=== PATIENT | female | born 1990 | race Caucasian/White ===

== ENCOUNTER 2018-08-15 17:28 | Emergency (ER) | payer OTHER, MEDICAID, SELFPAY ==
[2018-08-15 17:36] VITALS: BP 135/95; PULSE 91; RESP 16; O2SAT 100; BMI 18.8
[2018-08-15 18:26] VITALS: BP 118/77; PULSE 69; RESP 14; O2SAT 100
--- NOTE | 2018-08-15 18:55 | DI.RAD.S_ITS ---
PROCEDURE: XR CHEST 1V INDICATIONS: Chest pain, shortness of breath occasionally, pna last month, cough gone TECHNIQUE: One view of the chest was acquired. COMPARISON: None. FINDINGS: Surgical changes and devices: None. Lungs and pleura: No pleural effusions or pneumothorax. Lungs are clear. Mediastinum: Mediastinal contours appear normal. Heart size is normal. Bones and chest wall: No suspicious bony lesions. Overlying soft tissues appear unremarkable. IMPRESSION: No acute disease. Dictated by: Rashaad Mcelroy M.D. on 08/15/2018 at 19:51 Approved by: Rashaad Mcelroy M.D. on 08/15/2018 at 19:51
--- NOTE | 2018-08-15 19:01 | ED_ITS ---
HPI - Chest Pain General Chief Complaint: Chest Pain Stated Complaint: STATES CHEST PAIN Time Seen by Provider: 08/15/18 18:35 Source: patient Mode of arrival: ambulatory Limitations: no limitations History of Present Illness HPI narrative: This is a 28-year-old female that comes to the emergency department with multiple concerns. Patient states she had pneumonia last month she was on antibiotics but did not follow up. Her cough resolved but she has had some chest pains that did not seem right the last 2 or 3 days. One episode was 3 days ago 1 was today. She feels fatigued and a little bit tired. The pain is sort of a of bolt in her chest but also in her back. She states that when she was trying to go up a she felt sort of strain with the exertion but does not feel short of breath necessary early. She has not had any fevers. She is not having any cough. She sometimes feels like she can't take a full breath but then other times can. She denies any nausea or vomiting, she denies any issues with bowel movements. She had urinary frequency yesterday. She has not had any prior back issues. She states that she is lying on the couch watching TV and does not bother her. She states she is normally very active person. She also has a history of anxiety and occasionally takes hydroxyzine for this, she also has had ADD. She was told that she had ovarian cyst remotely but never had her three-month follow-up ultrasound because of insurance issues. She does gape, she quit drinking alcohol a year ago because she states she was abusing alcohol, she also quit using THC about 3 months ago for the same reasons. She denies any other illicit. Patient states she did have lab work last week they told her that her thyroid is elevated, her vitamin K was off and told her to talk supplements, they also told her vitamin-D level was low. They want her to return in about a week for re-evaluation. Related Data Allergies Allergy/AdvReac Type Severity Reaction Status Date / Time No Known Drug Allergies Allergy Verified 08/15/18 17:36 Review of Systems Review of Systems All systems reviewed & are unremarkable except as noted in HPI and below Constitutional Denies chills, Reports fatigue, Denies fever(s) and Denies weakness Cardiovascular Reports chest pain, Denies chest pain at rest, Denies diaphoresis, Denies syncope, Denies edema, Denies irregular heart rhythm, Denies lightheadedness and Reports dyspnea (Sometimes, more tight in chest) Respiratory Denies chest congestion, Denies cough, Denies pain on inspiration, Denies pain with cough and Reports dyspnea (Sometimes, more tight in chest) Gastrointestinal Gastrointestinal: Denies abdominal pain, Denies change in bowel habits, Denies diarrhea, Denies nausea and Denies vomiting Genitourinary Denies hematuria, Reports urinary frequency, Denies flank pain, Denies urinary incontinence and Denies urinary urgency Musculoskeletal Reports back pain (Thoracic back pain, fleeting) and Denies limited range of motion Neurologic Denies syncope and Denies weakness Endocrine Reports fatigue [facility] Social History Smoking Status: Current every day smoker Exam Initial Vital Signs Initial Vital Signs: Vital Signs Pulse Rate 91 H 08/15/18 17:36 Respiratory Rate 16 08/15/18 17:36 Blood Pressure 135/95 H 08/15/18 17:36 Pulse Oximetry 100 08/15/18 17:36 GENERAL: Alert and oriented x three, well-nourished, well-appearing thin female in mild distress. Patient does appear anxious. HEENT: Head normocephalic, atraumatic, EOMI, pupils reactive, face symmetric, moist mucous membranes NECK: Supple, full range of motion CARDIOVASCULAR: Regular rate and rhythm without murmurs, rubs or gallops. RESPIRATORY: Breath sounds equal bilaterally, no wheezes rales or rhonchi. ABDOMEN: Soft, nontender. Normoactive bowel sounds all 4 quadrants. No guarding or rebound, rigidity, no mass : No CVA tenderness EXTREMITIES: Normal range of motion, no clubbing or edema. Neurovascularly intact NEUROLOGICAL: Cranial nerves II through XII grossly intact. Moving all extremities SKIN: Warm, dry, no petechiae, no rashes or lesions. Course Orders Ordered: ED Orders 08/15/18 18:55 XR chest 1V Stat 08/15/18 19:10 Complete Blood Count AUTO DIFF Stat Comprehensive Metabolic Panel Stat D Dimer Stat Lipase Stat Thyroid Stimulating Hormone Stat Troponin & CK Cardiac Panel Stat Vital Signs - 8 hr 08/15/18 17:36 08/15/18 18:26 08/15/18 19:14 Pulse Rate 91 H 69 65 Respiratory Rate 16 14 10 L Blood Pressure 135/95 H Blood Pressure [Right Arm] 118/77 109/66 Pulse Oximetry 100 100 100 08/15/18 20:08 Pulse Rate 67 Respiratory Rate 16 Blood Pressure Blood Pressure [Right Arm] 121/65 Pulse Oximetry 100 MDM - Chest Pain Lab Data Result diagrams: 08/15/18 19:10 08/15/18 19:10 Lab Results 08/15/18 08/15/18 08/15/18 Range/Units 19:10 19:10 19:10 WBC 8.3 (4.5-11.0) X10^3/uL RBC 4.63 (4.0-5.2) X10^6/uL Hgb 14.2 (12.0-16.0) g/dL Hct 42.9 (36-46) % MCV 92.7 (80-100) fL MCH 30.6 (26-34) PG MCHC 33.0 (30-36) % RDW 12.8 (11.6-14.8) % Plt Count 237 (150-400) X10^3/uL Neut % (Auto) 61.0 (50-75) % Lymph % (Auto) 28.9 (25-40) % [place] % (Auto) 6.9 (3-14) % Eos % (Auto) 2.4 (2-4) % Baso % (Auto) 0.8 (0-2) % Neut # (Auto) 5000 (8596-5720) /uL D-Dimer < 200 (<230) ng/mL Sodium 143 (137-145) mmol/L Potassium 3.7 (3.4-5.1) mmol/L Chloride 104 (98-107) mmol/L Carbon Dioxide 26 (22-32) mmol/L BUN 17 (7-17) mg/dL Creatinine 0.80 (0.52-1.04) mg/dL Estimated GFR > 60.0 (>60) mL/min BUN/Creatinine Ratio 21.3 (6-22) Glucose 85 (70-100) mg/dL Calcium 9.6 (8.4-10.2) mg/dL Total Bilirubin 0.3 (0.2-1.3) mg/dL AST 19 (14-36) IU/L ALT 20 (9-52) IU/L Alkaline Phosphatase 45 (38-126) U/L Total Creatine Kinase 57 (30-135) U/L CK-MB (CK-2) TNP CK-MB (CK-2) Rel Index TNP Troponin I < 0.012 (0.01-0.034) ng/mL Total Protein 7.4 (6.3-8.2) g/dL Albumin 4.5 (3.5-5.0) g/dL Globulin 2.9 (1.7-4.1) g/dL Albumin/Globulin Ratio 1.6 (1.0-2.8) Lipase 142 (23-300) U/L TSH (0.47-4.68) uIU/mL Urine RBC (0-5/HPF) Urine WBC (0-5/HPF) Ur Squamous Epith Cells Amorphous Sediment Urine Bacteria (None) Urine Mucus (Negative) Ur Culture Indicated? Micro UA Comment 08/15/18 08/15/18 Range/Units 19:10 Unknown WBC (4.5-11.0) X10^3/uL RBC (4.0-5.2) X10^6/uL Hgb (12.0-16.0) g/dL Hct (36-46) % MCV (80-100) fL MCH (26-34) PG MCHC (30-36) % RDW (11.6-14.8) % Plt Count (150-400) X10^3/uL Neut % (Auto) (50-75) % Lymph % (Auto) (25-40) % [place] % (Auto) (3-14) % Eos % (Auto) (2-4) % Baso % (Auto) (0-2) % Neut # (Auto) (4079-2985) /uL D-Dimer (<230) ng/mL Sodium (137-145) mmol/L Potassium (3.4-5.1) mmol/L Chloride (98-107) mmol/L Carbon Dioxide (22-32) mmol/L BUN (7-17) mg/dL Creatinine (0.52-1.04) mg/dL Estimated GFR (>60) mL/min BUN/Creatinine Ratio (6-22) Glucose (70-100) mg/dL Calcium (8.4-10.2) mg/dL Total Bilirubin (0.2-1.3) mg/dL AST (14-36) IU/L ALT (9-52) IU/L Alkaline Phosphatase (38-126) U/L Total Creatine Kinase (30-135) U/L CK-MB (CK-2) CK-MB (CK-2) Rel Index Troponin I (0.01-0.034) ng/mL Total Protein (6.3-8.2) g/dL Albumin (3.5-5.0) g/dL Globulin (1.7-4.1) g/dL Albumin/Globulin Ratio (1.0-2.8) Lipase (23-300) U/L TSH 1.49 (0.47-4.68) uIU/mL Urine RBC 0-1/hpf (0-5/HPF) Urine WBC 5-10/hpf H (0-5/HPF) Ur Squamous Epith Cells 1-5 /hpf Amorphous Sediment 1+ Urine Bacteria Many (>30) H (None) Urine Mucus 3+ H (Negative) Ur Culture Indicated? Specimen cultured Micro UA Comment Not Reportable Point of Care Testing Test Results Negative Urine Dip Bedside Urine Glucose Negative Bedside Urine Bilirubin - Negative Bedside Urine Ketone +/- 5 Urine Specific [place] 1.030 Bedside Urine Occult Blood - Negative Bedside Urine pH 6.0 Bedside Urine Protein +/- 15 Bedside Urine Urobilinogen - Negative Bedside Urine Nitrite - Negative Bedside Urine Leukocytes - Negative Esterase Imaging Data Chest x-ray: Radiologist's impression: [place] [address] XRay Report Signed Patient: Pily Maldonado [facility]#: [id number] : 1990Acct:[id number] Age/Sex: 28 / FDate of Service: 08/15/18 Loc: ED Accession Number: [id number] Procedure: XR chest 1V Ordering Provider: Che Pabon D.O. PROCEDURE: XR CHEST 1V INDICATIONS: Chest pain, shortness of breath occasionally, pna last month, cough gone TECHNIQUE: One view of the chest was acquired. COMPARISON: None. FINDINGS: Surgical changes and devices: None. Lungs and pleura: No pleural effusions or pneumothorax. Lungs are clear. Mediastinum: Mediastinal contours appear normal. Heart size is normal. Bones and chest wall: No suspicious bony lesions. Overlying soft tissues appear unremarkable. IMPRESSION: No acute disease. Dictated by: Rashaad Mcelroy M.D. on 08/15/2018 at 19:51 Approved by: Rashaad Mcelroy M.D. on 08/15/2018 at 19:51 ECG Data Attestation: I personally reviewed and interpreted this ECG as follows: Interpretation: Sinus rhythm rate of 68 P are 155 QRS is 78 and QTC of 373. No ST elevation or depression. MDM Narrative Medical decision making narrative: Patient lab work appears appropriate here today. Discussed that patient should keep follow up with primary care physician next week. She states she was told your vitamin-D level was low which I did not check, that her thyroid is elevated and her potassium was also low at to supplement. She has had 1 dose of potassium her level is fine here in the emergency department in her thyroid level is not out of normal bounds. Plan to have patient follow up with her primary care but not finding any acute or dangerous causes of her chest and back pain. Discharge Plan Departure Patient Disposition: Home Clinical Impression: Atypical chest pain Discharge Date/Time: 08/15/18 20:45 Interventions: ED Discharge Assessment Last Done: 08/15/18 20:44 Instructions: DI for Atypical Chest Pain Activity Restrictions/Additional Instructions: Follow-up at your scheduled appointment with your primary care provider. Included are your labs from today. Continue home medications as prescribed. Return to the emergency department for syncope, recurrent severe chest pain, worsening shortness of breath, new swelling in your extremities, persistent vomiting, black or bloody stools or other new or concerning symptoms.
[2018-08-15 19:14] VITALS: BP 109/66; PULSE 65; RESP 10; O2SAT 100
[2018-08-15 19:30] LABS: Add Manual Diff / Slide Review NO; Basophils Percent Auto 0.8 % (0-2); Eosinophils Percent Auto 2.4 % (2-4); Hematocrit 42.9 % (36-46); Hemoglobin 14.2 g/dL (12.0-16.0); Lymphocytes Percent Auto 28.9 % (25-40); Mean Corpuscular Hemoglobin 30.6 PG (26-34); Mean Corpuscular Volume 92.7 fL (80-100); Monocytes Percent Auto 6.9 % (3-14); Neutrophils Absolute Auto 5000 /uL (3000-5900); Platelet Count 237 X10^3/uL (150-400); Red Blood Cell Count 4.63 X10^6/uL (4.0-5.2); Red Cell Distribution Width 12.8 % (11.6-14.8); White Blood Cell Count 8.3 X10^3/uL (4.5-11.0)
[2018-08-15 19:41] LABS: D Dimer < 200 ng/mL (<230)
[2018-08-15 19:42] LABS: Alanine Aminotransferase 20 IU/L (9-52); Albumin 4.5 g/dL (3.5-5.0); Albumin Globulin Ratio 1.6 (1.0-2.8); Alkaline Phosphatase 45 U/L (38-126); Aspartate Aminotransferase 19 IU/L (14-36); BUN Creatinine Ratio 21.3 (6-22); Bilirubin Total 0.3 mg/dL (0.2-1.3); Blood Urea Nitrogen 17 mg/dL (7-17); Calcium 9.6 mg/dL (8.4-10.2); Carbon Dioxide 26 mmol/L (22-32); Chloride 104 mmol/L (98-107); Creatine Kinase 57 U/L (30-135); Estimated Glomerular Filt Rate > 60.0 mL/min (>60); Globulin 2.9 g/dL (1.7-4.1); Glucose 85 mg/dL (70-100); HEMOLYSIS < 15 (0-50); Lipase 142 U/L (23-300); Potassium 3.7 mmol/L (3.4-5.1); Sodium 143 mmol/L (137-145); Total Protein 7.4 g/dL (6.3-8.2)
[2018-08-15 19:54] LABS: Troponin I < 0.012 ng/mL (0.01-0.034)
[2018-08-15 20:08] VITALS: BP 121/65; PULSE 67; RESP 16; O2SAT 100
[2018-08-15 20:17] LABS: Thyroid Stimulating Hormone 1.49 uIU/mL (0.47-4.68)
[2018-08-15 20:46] LABS: Amorphous Sediment Urine 1+; Bacteria Urine Many (>30); Mucus Urine 3+ (Negative); RBC Urine 0-1/HPF (0-5/HPF); Squamous Epithelial Cell Urine 1-5 /HPF; WBC Urine 5-10/HPF (0-5/HPF)
[2018-08-15 20:47] LABS: Culture Indicated Urine Specimen Cultured
== END 2018-08-15 20:45 | disposition home or self-care (01) ==
PROVIDERS: Emergency Provider Emergency Medicine
DX: R07.89 Other chest pain (principal)
CPT/HCPCS: 36591; 71045; 80053; 81003; 81015; 81025; 82550; 83690; 84443; 84484; 85025; 85379; 87086; 93005; 99283; 99285

== ENCOUNTER 2020-06-10 21:42 | Emergency (ER) | payer OTHER, MEDICAID, SELFPAY ==
--- NOTE | 2020-06-10 21:45 | ED.ABDPAIN ---
HPI - Abdominal Pain General Chief Complaint: Nausea/Vomiting/Diarrhea Stated Complaint: not feeling well/no apetite/think she has worms Time Seen by Provider: 06/10/20 21:45 Source: patient Mode of arrival: Ambulatory History of Present Illness HPI narrative: 30F smoker without significant medical history presents with the chief complaint of poor appetite for the past 3 days, suprapubic cramping, and constipation. She had a small bowel movement today and saw a worm in it. She has spent a significant amount of time out on the boat and has been eating a lot of fish. She denies SHAY, fever, blurry vision, chest pain, or cough. She is on her menses and states it is relatively normal for her. She denies eating obviously bad food. She denies exposure to ill persons. MD complaint: abdominal pain Onset (ago): day(s) Pain Consistency: intermittent Location: suprapubic Severity: moderate Quality: cramping Radiation: none Exacerbating factors: nothing Related Data Previous Rx's Medication Instructions Recorded albendazole 400 mg PO DAILY #2 tab 06/10/20 ciprofloxacin HCl 500 mg PO BID 5 Days #10 tab 06/10/20 Allergies Allergy/AdvReac Type Severity Reaction Status Date / Time amoxicillin Allergy Verified 06/10/20 21:58 Review of Systems Constitutional Constitutional: Denies chills, Denies fatigue, Denies fever(s), Denies frequent falls, Denies lethargy and Denies weakness Eyes Eyes: Denies change in vision, Denies eye discharge, Denies irritation and Denies loss of vision ENT Ears, Nose, Mouth, and Throat: Denies change in voice, Denies dizziness, Denies neck pain, Denies sore throat and Denies throat swelling Cardiovascular Cardiovascular: Denies chest pain, Denies irregular heart rhythm, Denies lightheadedness, Denies palpitations, Denies dyspnea, Denies dyspnea on exertion and Denies orthopnea Respiratory Respiratory: Denies cough, Denies dyspnea, Denies dyspnea on exertion and Denies wheezing Gastrointestinal Gastrointestinal: Reports abdominal pain, Denies change in bowel habits, Reports change in stool character, Reports constipation, Denies diarrhea, Denies nausea and Denies vomiting Musculoskeletal Musculoskeletal: Denies neck pain and Denies numbness Integumentary/Breasts Skin/Breast: Denies pruritus, Denies erythema, Denies rash and Denies wounds Neurologic Neurologic: Denies behavioral changes, Denies confusion, Denies dizziness, Denies frequent falls, Denies loss of vision, Denies numbness and Denies weakness Psychiatric Psychiatric: Denies anxiety, Denies behavioral changes, Denies confusion, Denies depression, Denies homicidal ideation and Denies suicidal ideation Endocrine Endocrine: Denies fatigue, Denies flushing and Denies palpitations Hematologic/Lymphatic Hematologic/Lymphatic: Denies easy bruising Allergic/Immunologic Allergic/Immunologic: Denies urticaria, Denies throat swelling and Denies wheezing Patient History Social History Smoking Status: Current every day smoker Smoking Status: Current every day smoker Substance Use Type: does not use Exam Narrative Exam Narrative: GENERAL: [30] year old patient appears stated age. Thin. No obvious distress, drinking Red Bull. HEAD: Atraumatic. Normocephalic. EYES: Pupils equal round and reactive. Extraocular motions intact. No scleral icterus. No injection or drainage. ENT: Nose without bleeding, purulent drainage. Throat without erythema, tonsillar hypertrophy or exudate. Airway patent. NECK: Trachea midline. Non tender CARDIOVASCULAR: Regular rate and rhythm without murmurs, gallops, or rubs. RESPIRATORY: Clear to auscultation. Breath sounds equal bilaterally. No wheezes, rales, or rhonchi. GASTROINTESTINAL: Abdomen soft, non-tender, nondistended. EXTREMITIES: No edema or joint tenderness. BACK: Nontender without deformity or crepitance. No flank tenderness. NEURO: AOx3. SKIN: No rash or erythema of visible areas Initial Vital Signs Initial Vital Signs: Vital Signs Temperature 97.8 F 06/10/20 21:54 Pulse Rate 73 06/10/20 21:54 Respiratory Rate 18 06/10/20 21:54 Blood Pressure 137/80 06/10/20 21:54 Pulse Oximetry 99 06/10/20 21:54 Course Course Course Narrative: patient has reasurring exam and vitals. We discussed IVF, labs, possible imaging, but she refused stating she'd prefer to start more simple, and she has an appointment with her PCP on 06/13/2020. She's been given return precautions and has had questions answered to her apparent satisfaction Orders Ordered: ED Orders 06/10/20 22:00 Urinalysis and Microscopic Stat Vital Signs Vital signs: Vital Signs - 8 hr 06/10/20 21:54 Temperature 97.8 F Pulse Rate 73 Respiratory Rate 18 Blood Pressure 137/80 Pulse Oximetry 99 MDM - Abdominal Pain Lab Data Labs: Lab Results 06/10/20 Range/Units 22:00 Urine Color Yellow Urine Appearance Clear Urine pH 7.5 (4.5-8.0) Ur Specific [place] 1.015 (1.000-1.035) Urine Protein Negative (Negative) Urine Glucose (UA) Negative (Negative) g/dL Urine Ketones Negative (NEGATIVE) Urine Occult Blood Negative (Negative) Urine Nitrate Negative (Negative) Urine Bilirubin Negative (NEGATIVE) Urine Urobilinogen 0.2 (0.2) E.U./dL Ur Leukocyte Esterase Negative (NEGATIVE) Urine RBC None seen (0-5/HPF) Urine WBC None seen (0-5/HPF) Ur Squamous Epith Cells 0-1 /hpf (0-5/HPF) Urine Bacteria None seen (None) Ur Culture Indicated? Cult not indicated Micro UA Comment Microscopic normal Point of care testing: Point of Care Testing Test Results Negative Urine Dip Bedside Urine Glucose Negative Bedside Urine Bilirubin - Negative Bedside Urine Ketone - Negative Urine Specific [place] 1.010 Bedside Urine Occult Blood - Negative Bedside Urine pH 7.5 Bedside Urine Protein - Negative Bedside Urine Urobilinogen - Negative Bedside Urine Nitrite - Negative Bedside Urine Leukocytes +/- 15 Esterase Discharge Plan Departure Patient Disposition: Home Clinical Impression: Dysuria Discharge Date/Time: 06/10/20 22:51 Instructions: DI for Abdominal Pain-Adult, DI for Dysuria -- Adult Activity Restrictions/Additional Instructions: *You have been diagnosed with [ dysuria, abdominal cramping, possible worm in stool ] *What to do: *Take medications as directed *Follow up with your primary care provider in 2-3 days, call for an appointment. Let them know you were seen in the Emergency Department and that we ask that you be seen in follow up *Return to ER if you should have any new, worsening or concerning symptoms Prescriptions: New albendazole 200 mg tablet 400 mg PO DAILY Qty: 2 RF: 0 ciprofloxacin HCl 500 mg tablet 500 mg PO BID 5 Days Qty: 10 RF: 0 Referrals: Sergio García MD [Primary Care Provider] -
[2020-06-10 21:54] VITALS: BP 137/80; PULSE 73; RESP 18; TEMP 36.6; O2SAT 99; BMI 20.5
[2020-06-10 22:21] LABS: Bacteria Urine None Seen; RBC Urine None Seen (0-5/HPF); WBC Urine None Seen (0-5/HPF)
[2020-06-10 22:22] LABS: Appearance Urine UA CLEAR; Bilirubin Urine UA NEGATIVE (NEGATIVE); Color Urine UA YELLOW; Glucose Urine UA NEGATIVE (Negative); Ketones Urine UA NEGATIVE (NEGATIVE); Leukocyte Esterase Urine UA NEGATIVE (NEGATIVE); Nitrite Urine UA NEGATIVE (Negative); Occult Blood Urine UA NEGATIVE (Negative); Protein Urine UA NEGATIVE (Negative); Specific Gravity Urine UA 1.015 (1.000-1.035); Urobilinogen Urine UA 0.2 E.U./dL (0.2)
[2020-06-10 22:24] LABS: Culture Indicated Urine Cult Not Indicated; Squamous Epithelial Cell Urine 0-1 /HPF (0-5/HPF); Urine Comments Microscopic Normal; pH Urine UA 7.5 (4.5-8.0)
== END 2020-06-10 22:51 | disposition home or self-care (01) ==
PROVIDERS: Emergency Provider Emergency Medicine; PCP Family Medicine
DX: R10.30 Lower abdominal pain, unspecified (principal); R30.0 Dysuria
CPT/HCPCS: 81001; 81003; 81025; 99282

== ENCOUNTER 2020-06-21 22:59 | Emergency (ER) | payer OTHER, MEDICAID, SELFPAY ==
[2020-06-21 23:14] VITALS: BP 147/81; PULSE 111; RESP 18; TEMP 36.6; O2SAT 100; BMI 20.5
[2020-06-21 23:49] VITALS: PULSE 112; O2SAT 100
[2020-06-22] VITALS (11 sets, daily range): BP systolic 127–157; BP diastolic 67–74; PULSE 69–106; O2SAT 98–100
[2020-06-22 01:21] LABS: Appearance Urine UA CLEAR; Bilirubin Urine UA NEGATIVE (NEGATIVE); Color Urine UA YELLOW; Glucose Urine UA NEGATIVE (Negative); Ketones Urine UA TRACE (NEGATIVE); Leukocyte Esterase Urine UA NEGATIVE (NEGATIVE); Nitrite Urine UA NEGATIVE (Negative); Occult Blood Urine UA 3+ (Negative); Protein Urine UA 1+ (Negative); Specific Gravity Urine UA 1.015 (1.000-1.035); Urobilinogen Urine UA 0.2 E.U./dL (0.2)
[2020-06-22 01:22] LABS: pH Urine UA 8.5 (4.5-8.0)
[2020-06-22 01:26] LABS: UR Morphine/Opiate cutoff 300 Negative (Negative); Ur Creatinine Normal (Normal); Ur Specific Gravity Normal (Normal); Urine Amphetamines Positive (Negative); Urine Barbiturates Negative (Negative); Urine Benzodiazepines Negative (Negative); Urine Cocaine Negative (Negative); Urine MDMA Negative (Negative); Urine Methadone Negative (Negative); Urine Methamphetamines Negative (Negative); Urine Oxycodone Negative (Negative); Urine Phencyclidine Negative (Negative); Urine Tetrahydrocannabinol Positive (Negative); Urine Tricyclic Antidepressant Positive (Negative); Urine pH Normal (Normal)
[2020-06-22 01:29] LABS: Bacteria Urine Moderate (10-30); RBC Urine 1-5/HPF (0-5/HPF); Squamous Epithelial Cell Urine 1-5 /HPF (0-5/HPF); WBC Urine 0-1/HPF (0-5/HPF)
[2020-06-22 01:30] LABS: Add Manual Diff / Slide Review NO; Basophils Absolute Auto 100 /uL (0-100); Basophils Percent Auto 0.3 % (0-2); Eosinophils Absolute Auto 0 /uL (0-450); Eosinophils Percent Auto 0.2 % (2-4); Hematocrit 41.6 % (36-46); Hemoglobin 13.8 g/dL (12.0-16.0); Lymphocytes Absolute Auto 1800 /uL (1100-4500); Lymphocytes Percent Auto 8.5 % (25-40); Mean Corpuscular HGB Conc 33.2 % (30-36); Mean Corpuscular Volume 93.2 fL (80-100); Monocytes Absolute Auto 900 /uL (0-900); Monocytes Percent Auto 4.3 % (3-14); Neutrophils Absolute Auto 18300 /uL (1500-7000); Neutrophils Percent Auto 86.7 % (50-75); Platelet Count 272 X10^3/uL (150-400); Red Blood Cell Count 4.46 X10^6/uL (4.0-5.2); White Blood Cell Count 21.1 X10^3/uL (4.5-11.0)
[2020-06-22 01:30] LABS: Culture Indicated Urine Cult Not Indicated; Hyaline Casts Urine 0-1/LPF; Mucus Urine 2+ (Negative)
[2020-06-22 01:39] LABS: Alanine Aminotransferase 14 IU/L (<35); Albumin 4.5 g/dL (3.5-5.0); Albumin Globulin Ratio 1.3 (1.0-2.8); Alkaline Phosphatase 80 U/L (38-126); Aspartate Aminotransferase 26 IU/L (14-36); BUN Creatinine Ratio 12.5 (6-22); Bilirubin Total 0.3 mg/dL (0.2-1.3); Blood Urea Nitrogen 10 mg/dL (7-17); Calcium 9.7 mg/dL (8.4-10.2); Carbon Dioxide 27 mmol/L (22-32); Chloride 105 mmol/L (98-107); Estimated Glomerular Filt Rate > 60.0 mL/min (>60); Globulin 3.5 g/dL (1.7-4.1); Glucose 113 mg/dL (70-100); HEMOLYSIS < 15 (0-50); Potassium 3.6 mmol/L (3.4-5.1); Sodium 142 mmol/L (137-145)
--- NOTE | 2020-06-22 01:50 | ED.SKABFB ---
HPI - Skin/Abscess/Foreign Bdy General Chief complaint: Skin/Abscess/Foreign Body Stated complaint: state has she has worms Time Seen by Provider: 06/22/20 00:45 Source: patient Mode of arrival: Ambulatory Limitations: no limitations History of Present Illness HPI narrative: Patient seen here 12 days ago for concerns of worms in the GI tract. Patient was prescribed albendazole as well as Cipro. Treated for UTI as well. Patient concerned has parasitic infection. Has been fishing along dirty areas and possible exposure to parasites. She states she seen 3 warmth around the perineum. No fever chills. Patient states she squats down to urinate and had 1 point noticed some worms on the ground. She states she has been pulling at a worm on the right perineum area. Denies abdominal pain. Does have history of internal hernia. No constipation. No nausea or vomiting, having daily bowel movements. Related Data Previous Rx's Medication Instructions Recorded albendazole 400 mg PO DAILY #2 tab 06/10/20 doxycycline monohydrate 100 mg PO BID #20 tab 06/22/20 hydrocodone-acetaminophen 1 tab PO Q6H PRN #10 tab 06/22/20 ondansetron 4 mg PO Q8H PRN #10 tab 06/22/20 Allergies Allergy/AdvReac Type Severity Reaction Status Date / Time amoxicillin Allergy Verified 06/10/20 21:58 Review of Systems Review of Systems Narrative: GENERAL: Denies chills, fatigue, malaise, fever, sweats. HEENT: Denies sinus pain, ear pain, sore throat, difficulty swallowing, dizziness. RESPIRATORY: Denies dyspnea, cough, wheezing, hemoptysis, sputum. CARDIOVASCULAR: Denies chest pain, palpitations, orthopnea, edema, GASTROINTESTINAL: Denies nausea, vomiting, abdominal pain, diarrhea, constipation, melena. : Denies dysuria, frequency, incontinence, hematuria, urinary retention. Complains possible parasites, complaints of perineum pain MUSCULOSKELETAL: denies weakness, joint pain, or bony pain SKIN: Denies rash, skin lesions NEUROLOGIC: Denies weakness, headache, numbness, change in speech, confusion, seizures, incoordination. PSYCHIATRIC: No concerning psychosocial issues. ROS Unobtainable: All systems reviewed & are unremarkable except as noted in HPI and below Patient History Social History Smoking Status: Current every day smoker Smoking Status: Current every day smoker tobacco type: vaping alcohol intake frequency: 0-2 drinks per day Substance Use Type: does not use Exam Narrative Exam Narrative: GENERAL: patient appears stated age. Well-nourished, well-developed patient, in no distress, not toxic HEAD: Atraumatic. Normocephalic. EYES: Pupils equal round and reactive. Extraocular motions intact. No scleral icterus. No injection or drainage. ENT: Nose without bleeding, purulent drainage. Throat without erythema, tonsillar hypertrophy or exudate. Airway patent. NECK: Trachea midline. Non tender CARDIOVASCULAR: Regular rate and rhythm without murmurs, gallops, or rubs. RESPIRATORY: Clear to auscultation. Breath sounds equal bilaterally. No wheezes, rales, or rhonchi. GASTROINTESTINAL: Abdomen soft, non-tender, nondistended. No peritoneal signs. : Nurse Rosi at bedside to supervisor litharge and to assist for pelvic exam, on external exam to the right of the vagina and there is a vertical ovoid abscess that has opened. Small tissue/possible vein that patient describes as a warm at inferior border. Not a parasite. No active drainage. No active bleeding. Abscess measures 2 cm vertically and 1 cm transverse. Depth is approximately 5 mm. Normal vaginal exam. No discharge or lesions for parasites in the vagina. No CMT. No adnexal tenderness EXTREMITIES: No edema or joint tenderness. BACK: Nontender without deformity or crepitance. No flank tenderness. NEURO: AOx4. SKIN: No rash or erythema of visible areas PSYCH: Not anxious, is cooperative Initial Vital Signs Initial Vital Signs: Vital Signs Temperature 97.8 F 06/21/20 23:14 Pulse Rate 111 H 06/21/20 23:14 Respiratory Rate 18 06/21/20 23:14 Blood Pressure 147/81 H 06/21/20 23:14 Pulse Oximetry 100 06/21/20 23:14 Course Course Course Narrative: Patient has elevated white count. Antibiotics ordered. Blood culture and lactic acid. Decision to Admit Date: 06/22/20 Decision to Admit time: 03:57 Orders Ordered: ED Orders 06/22/20 01:08 Chlamydia Gonorrhea PCR -URINE Stat Urinalysis and Microscopic Stat Urine Drug Screen, Rapid Stat 06/22/20 01:22 Complete Blood Count AUTO DIFF Stat Comprehensive Metabolic Panel Stat Lactate (Lactic Acid) Stat Test Serum,Qual Stat Procalcitonin Stat 06/22/20 02:05 Wet Prep Tric BV Es Stat 06/22/20 02:19 CT abdomen pelvis w con Stat 06/22/20 02:20 Blood Culture Stat 06/22/20 04:17 COVID19 -ED/INPAT/OR/L&D Stat Discontinued Medications Doxycycline Hyclate 100 mg/ (Sodium Chloride) 100 mls @ 100 mls/hr IV NOW ONE Stop: 06/22/20 02:10 Last Infusion: 06/22/20 04:30 Dose: 0 mls/hr Documented by: Admin: 06/22/20 03:13 Dose: 100 mls/hr Documented by: RAUL Sodium Chloride (Normal Saline 0.9%) 1,000 mls @ 1,000 mls/hr IV BOLUS ONE Stop: 06/22/20 03:18 Last Infusion: 06/22/20 04:30 Dose: 0 mls/hr Documented by: Admin: 06/22/20 03:14 Dose: 1,000 mls/hr Documented by: RAUL Morphine Sulfate (Morphine) 4 mg IV NOW ONE Stop: 06/22/20 03:43 Last Admin: 06/22/20 04:07 Dose: 4 mg Documented by: EMRE Ondansetron HCl (Zofran) 4 mg IV NOW ONE Stop: 06/22/20 03:43 Last Admin: 06/22/20 04:07 Dose: 4 mg Documented by: EMRE Reevaluation(s) Reevaluation #1: Reviewed CAT scan results with patient. She states she does have an internal hernia. However no problems with constipation. Has had bowel movements daily. Time: 03:57 Reevaluation #2: Reviewed discharge plan with patient and she agrees after being evaluated by hospitalist as well as surgeon Time: 04:34 Consultations Consultation #1: Spoke with Dr. Wild, general surgeon, she looked at the CT scans. At this time clinically not bowel obstruction. Patient could be admitted to hospitalist for cellulitis/abscess and she will see patient in the morning for evaluation of the skin wound. Time: 03:58 Consultation #2: Patient evaluated by general surgery and hospitalist in the emergency department dr wild and carmen vega, they decide no admission at this time. Patient to follow-up with surgeon next Wednesday. Time: 04:25 Vital Signs Vital signs: Vital Signs - 8 hr 06/21/20 23:14 06/21/20 23:49 06/22/20 00:00 Temperature 97.8 F Pulse Rate 111 H 112 H 104 H Respiratory Rate 18 Blood Pressure 147/81 H Pulse Oximetry 100 100 100 06/22/20 00:30 06/22/20 01:00 06/22/20 01:30 Temperature Pulse Rate 106 H 86 97 H Respiratory Rate Blood Pressure Pulse Oximetry 99 99 100 06/22/20 02:00 06/22/20 02:25 06/22/20 02:37 Temperature Pulse Rate 103 H 74 81 Respiratory Rate Blood Pressure 157/67 H Pulse Oximetry 99 99 100 06/22/20 03:00 06/22/20 03:21 06/22/20 03:30 Temperature Pulse Rate 105 H 90 69 Respiratory Rate Blood Pressure 128/74 127/71 Pulse Oximetry 98 99 100 06/22/20 04:00 Temperature Pulse Rate 94 H Respiratory Rate Blood Pressure Pulse Oximetry 100 MDM - Skin/Abscess/Foreign Bdy Differential Diagnosis Differential diagnosis: Likely abscess of skin or subcutaneous tissue and cellulitis Lab Data Attestation: I reviewed the patient's lab results. Result diagrams: 06/22/20 01:22 06/22/20 01:22 Labs: Lab Results 06/22/20 06/22/20 06/22/20 Range/Units 01:08 01:08 01:08 WBC (4.5-11.0) X10^3/uL RBC (4.0-5.2) X10^6/uL Hgb (12.0-16.0) g/dL Hct (36-46) % MCV (80-100) fL MCH (26-34) PG MCHC (30-36) % RDW (11.6-14.8) % Plt Count (150-400) X10^3/uL Neut % (Auto) (50-75) % Lymph % (Auto) (25-40) % Garfield % (Auto) (3-14) % Eos % (Auto) (2-4) % Baso % (Auto) (0-2) % Neut # (Auto) (5245-7816) /uL Lymph # (Auto) (8482-0374) /uL Garfield # (Auto) (0-900) /uL Eos # (Auto) (0-450) /uL Baso # (Auto) (0-100) /uL Sodium (137-145) mmol/L Potassium (3.4-5.1) mmol/L Chloride (98-107) mmol/L Carbon Dioxide (22-32) mmol/L BUN (7-17) mg/dL Creatinine (0.52-1.04) mg/dL Estimated GFR (>60) mL/min BUN/Creatinine Ratio (6-22) Glucose (70-100) mg/dL Lactate (0.7-2.1) mmol/L Calcium (8.4-10.2) mg/dL Total Bilirubin (0.2-1.3) mg/dL AST (14-36) IU/L ALT (<35) IU/L Alkaline Phosphatase (38-126) U/L Total Protein (6.3-8.2) g/dL Albumin (3.5-5.0) g/dL Globulin (1.7-4.1) g/dL Albumin/Globulin Ratio (1.0-2.8) Procalcitonin (<0.5) ng/mL Serum , Qual (Negative) Urine Color Yellow Urine Appearance Clear Urine pH 8.5 H (4.5-8.0) Ur Specific Leon 1.015 (1.000-1.035) Urine Protein 1+ H (Negative) Urine Glucose (UA) Negative (Negative) g/dL Urine Ketones Trace H (NEGATIVE) Urine Occult Blood 3+ H (Negative) Urine Nitrate Negative (Negative) Urine Bilirubin Negative (NEGATIVE) Urine Urobilinogen 0.2 (0.2) E.U./dL Ur Leukocyte Esterase Negative (NEGATIVE) Urine RBC 1-5/hpf (0-5/HPF) Urine WBC 0-1/hpf (0-5/HPF) Ur Squamous Epith Cells 1-5 /hpf (0-5/HPF) Urine Bacteria Moderate (10-30) H (None) Hyaline Casts 0-1/lpf (None) Urine Mucus 2+ H (Negative) Ur Culture Indicated? Cult not indicated U Opiates 300ng/mL cut Negative (Negative) Ur Oxycodone Screen Negative (Negative) Urine Methadone Screen Negative (Negative) Ur Barbiturates Screen Negative (Negative) U Tricyclic Antidepress Positive H (Negative) Ur Phencyclidine Scrn Negative (Negative) Ur Amphetamines Screen Positive H (Negative) U Methamphetamines Scrn Negative (Negative) Ur MDMA Scrn (Ecstasy) Negative (Negative) U Benzodiazepines Scrn Negative (Negative) Urine Cocaine Screen Negative (Negative) U Marijuana (THC) Screen Positive H (Negative) Ur Chlamydia DNA (PCR) Not detected N gonorrhoeae DNA (PCR) Not detected 06/22/20 06/22/20 06/22/20 Range/Units 01:22 01:22 01:22 WBC 21.1 H (4.5-11.0) X10^3/uL RBC 4.46 (4.0-5.2) X10^6/uL Hgb 13.8 (12.0-16.0) g/dL Hct 41.6 (36-46) % MCV 93.2 (80-100) fL MCH 31.0 (26-34) PG MCHC 33.2 (30-36) % RDW 13.0 (11.6-14.8) % Plt Count 272 (150-400) X10^3/uL Neut % (Auto) 86.7 H (50-75) % Lymph % (Auto) 8.5 L (25-40) % Garfield % (Auto) 4.3 (3-14) % Eos % (Auto) 0.2 L (2-4) % Baso % (Auto) 0.3 (0-2) % Neut # (Auto) 00355 H (7997-0824) /uL Lymph # (Auto) 1800 (3069-1127) /uL Garfield # (Auto) 900 (0-900) /uL Eos # (Auto) 0 (0-450) /uL Baso # (Auto) 100 (0-100) /uL Sodium 142 (137-145) mmol/L Potassium 3.6 (3.4-5.1) mmol/L Chloride 105 (98-107) mmol/L Carbon Dioxide 27 (22-32) mmol/L BUN 10 (7-17) mg/dL Creatinine 0.80 (0.52-1.04) mg/dL Estimated GFR > 60.0 (>60) mL/min BUN/Creatinine Ratio 12.5 (6-22) Glucose 113 H (70-100) mg/dL Lactate (0.7-2.1) mmol/L Calcium 9.7 (8.4-10.2) mg/dL Total Bilirubin 0.3 (0.2-1.3) mg/dL AST 26 (14-36) IU/L ALT 14 (<35) IU/L Alkaline Phosphatase 80 (38-126) U/L Total Protein 8.0 (6.3-8.2) g/dL Albumin 4.5 (3.5-5.0) g/dL Globulin 3.5 (1.7-4.1) g/dL Albumin/Globulin Ratio 1.3 (1.0-2.8) Procalcitonin (<0.5) ng/mL Serum , Qual Negative (Negative) Urine Color Urine Appearance Urine pH (4.5-8.0) Ur Specific Leon (1.000-1.035) Urine Protein (Negative) Urine Glucose (UA) (Negative) g/dL Urine Ketones (NEGATIVE) Urine Occult Blood (Negative) Urine Nitrate (Negative) Urine Bilirubin (NEGATIVE) Urine Urobilinogen (0.2) E.U./dL Ur Leukocyte Esterase (NEGATIVE) Urine RBC (0-5/HPF) Urine WBC (0-5/HPF) Ur Squamous Epith Cells (0-5/HPF) Urine Bacteria (None) Hyaline Casts (None) Urine Mucus (Negative) Ur Culture Indicated? U Opiates 300ng/mL cut (Negative) Ur Oxycodone Screen (Negative) Urine Methadone Screen (Negative) Ur Barbiturates Screen (Negative) U Tricyclic Antidepress (Negative) Ur Phencyclidine Scrn (Negative) Ur Amphetamines Screen (Negative) U Methamphetamines Scrn (Negative) Ur MDMA Scrn (Ecstasy) (Negative) U Benzodiazepines Scrn (Negative) Urine Cocaine Screen (Negative) U Marijuana (THC) Screen (Negative) Ur Chlamydia DNA (PCR) N gonorrhoeae DNA (PCR) 06/22/20 06/22/20 Range/Units 01:22 01:22 WBC (4.5-11.0) X10^3/uL RBC (4.0-5.2) X10^6/uL Hgb (12.0-16.0) g/dL Hct (36-46) % MCV (80-100) fL MCH (26-34) PG MCHC (30-36) % RDW (11.6-14.8) % Plt Count (150-400) X10^3/uL Neut % (Auto) (50-75) % Lymph % (Auto) (25-40) % Garfield % (Auto) (3-14) % Eos % (Auto) (2-4) % Baso % (Auto) (0-2) % Neut # (Auto) (9662-1414) /uL Lymph # (Auto) (8769-4707) /uL Garfield # (Auto) (0-900) /uL Eos # (Auto) (0-450) /uL Baso # (Auto) (0-100) /uL Sodium (137-145) mmol/L Potassium (3.4-5.1) mmol/L Chloride (98-107) mmol/L Carbon Dioxide (22-32) mmol/L BUN (7-17) mg/dL Creatinine (0.52-1.04) mg/dL Estimated GFR (>60) mL/min BUN/Creatinine Ratio (6-22) Glucose (70-100) mg/dL Lactate 1.0 (0.7-2.1) mmol/L Calcium (8.4-10.2) mg/dL Total Bilirubin (0.2-1.3) mg/dL AST (14-36) IU/L ALT (<35) IU/L Alkaline Phosphatase (38-126) U/L Total Protein (6.3-8.2) g/dL Albumin (3.5-5.0) g/dL Globulin (1.7-4.1) g/dL Albumin/Globulin Ratio (1.0-2.8) Procalcitonin 0.22 (<0.5) ng/mL Serum , Qual (Negative) Urine Color Urine Appearance Urine pH (4.5-8.0) Ur Specific Leon (1.000-1.035) Urine Protein (Negative) Urine Glucose (UA) (Negative) g/dL Urine Ketones (NEGATIVE) Urine Occult Blood (Negative) Urine Nitrate (Negative) Urine Bilirubin (NEGATIVE) Urine Urobilinogen (0.2) E.U./dL Ur Leukocyte Esterase (NEGATIVE) Urine RBC (0-5/HPF) Urine WBC (0-5/HPF) Ur Squamous Epith Cells (0-5/HPF) Urine Bacteria (None) Hyaline Casts (None) Urine Mucus (Negative) Ur Culture Indicated? U Opiates 300ng/mL cut (Negative) Ur Oxycodone Screen (Negative) Urine Methadone Screen (Negative) Ur Barbiturates Screen (Negative) U Tricyclic Antidepress (Negative) Ur Phencyclidine Scrn (Negative) Ur Amphetamines Screen (Negative) U Methamphetamines Scrn (Negative) Ur MDMA Scrn (Ecstasy) (Negative) U Benzodiazepines Scrn (Negative) Urine Cocaine Screen (Negative) U Marijuana (THC) Screen (Negative) Ur Chlamydia DNA (PCR) N gonorrhoeae DNA (PCR) Urine Dip Bedside Urine Glucose Negative Bedside Urine Bilirubin + 1 Bedside Urine Ketone +/- 5 Urine Specific Leon 1.010 Bedside Urine Occult Blood +++ Bedside Urine pH 8.5 Bedside Urine Protein + 30 Bedside Urine Urobilinogen - Negative Bedside Urine Nitrite - Negative Bedside Urine Leukocytes - Negative Esterase Imaging Data CT scan - abdomen/pelvis: Radiologist's Impression: There may be developing small-bowel obstruction involving the pelvic small bowel loops. Internal hernia should be considered. Mild edema with venous engorgement of the mesentery MDM Narrative Medical decision making narrative: Consult to general surgery and hospitalist. Both examined the patient in the emergency department and decided for discharge home and follow up next Wednesday in general surgery office. Patient not toxic at discharge Discharge Plan Departure Patient Disposition: Home Clinical Impression: Abscess of skin or subcutaneous tissue Qualifiers: Site of cutaneous abscess: unspecified site Qualified Code(s): L02.91 - Cutaneous abscess, unspecified Discharge Date/Time: 06/22/20 04:49 Instructions: DI for Skin Abscess Activity Restrictions/Additional Instructions: Return if worse or if any questions or concerns. No driving tonight or when taking narcotic pain medication. Call Dr. Wild office on Wednesday to confirm your office time the next day/Wednesday. Continue antibiotics today. Prescriptions: New doxycycline monohydrate 100 mg tablet 100 mg PO BID Qty: 20 RF: 0 hydrocodone-acetaminophen 5-325 mg tablet 1 tab PO Q6H PRN (Reason: pain) Qty: 10 RF: 0 ondansetron 4 mg tablet,disintegrating 4 mg PO Q8H PRN (Reason: nausea and vomiting) Qty: 10 RF: 0 No Action albendazole 200 mg tablet 400 mg PO DAILY Qty: 2 RF: 0 Referrals: Sergio García MD [Primary Care Provider] - Jelena Wild MD [Physician] -
[2020-06-22 02:02] LABS: Pregnancy Test Serum,Qual Negative (Negative)
--- NOTE | 2020-06-22 02:19 | DI.CT.S_ITS ---
PROCEDURE: CT ABDOMEN PELVIS W CON INDICATIONS: Pelvic pain TECHNIQUE: After the administration of intravenous contrast, 5 mm thick sections acquired from the diaphragm to the symphysis. 5 mm coronal and sagittal reformats were acquired. For radiation dose reduction, the following was used: automated exposure control, adjustment of mA and/or kV according to patient size. COMPARISON: None. FINDINGS: Image quality: Excellent. ABDOMEN: Lung bases: Lung bases are clear. Heart size is normal. Solid organs: Liver is normal in size and enhancement. Gallbladder normal. Biliary system is non dilated. Pancreas enhances normally. Spleen is normal in size and enhancement. No adrenal nodules. Kidneys demonstrate normal size and enhancement, without hydronephrosis. Peritoneum and bowel: Prominent but not threshold enlarged small bowel loops in the pelvis measuring up to 2.6 cm. No bowel wall thickening or inflammatory changes adjacent to the bowel. Nodes and vessels: No retroperitoneal or mesenteric adenopathy by size criteria. Aorta and inferior vena cava are normal in size. Miscellaneous: No ventral hernias. PELVIS: Genitourinary: Bladder wall thickness is normal. Peripherally enhancing right ovarian cyst measuring 1.8 cm could be a hemorrhagic cyst. Left ovary unremarkable. Small volume free pelvic fluid is within physiologic normal limits Miscellaneous: No threshold enlarged pelvic or inguinal lymph node. Bones: No suspicious bony lesions. No vertebral body compression fractures. IMPRESSION: Peripherally enhancing right ovarian cyst most likely represents a small hemorrhagic cyst and could represent a potential source of pelvic pain. Prominent but not threshold enlarged bowel loops in the pelvis raise very low suspicion for potential low-grade early small-bowel obstruction, in the appropriate clinical setting. No significant change from preliminary report. Dictated by: Golden Pacheco M.D. on 06/22/2020 at 7:17 Approved by: Golden Pacheco M.D. on 06/22/2020 at 7:21
[2020-06-22 02:47] LABS: Urine N gonorrhoeae NOT DETECTED
[2020-06-22 02:48] LABS: Urine Chlamydia NOT DETECTED
[2020-06-22] MEDS: DOXYCYCLINE 100 MG in SODIUM CHLORIDE 0.9% 100 ML IV (03:13)
[2020-06-22] MEDS: SODIUM CHLORIDE 0.9% 1,000 ML 1000 ML IV (03:14)
[2020-06-22] MEDS: ONDANSETRON 4 MG/2 ML INJ IV (04:07)
[2020-06-22] MEDS: MORPHINE 4 MG/ML INJ IV (04:07)
[2020-06-22 04:25] LABS: Procalcitonin 0.22 ng/mL (<0.5)
--- NOTE | 2020-06-22 05:01 | PM.CN ---
History of Present Illness Consult details Date Patient Seen: 06/22/20 Time Patient Seen: 05:02 Chief complaint: state has she has worms Reason for consult: groin wound, abnormal CT scan Requesting provider: Sergio Haas Narrative: This is a 30 yo woman who came into the ER with concerns about a right groin wound. She was seen in the ER about 12 days ago and diagnosed with UTI, and possible worm infestation. The patient was prescribed albendazole as well as Cipro. It is unclear whether she took the antibiotics. She comes back to the ER today with ongoing concerns about a parasite infection, and she felt that she may have found a worm in a groin wound. Worms have not been seen by the ER doctors on either occasion or presented by the patient, but she does verbalize concerns about worms in the stool and groin wound. In the ER she had a CT scan which reveals nonspecific intestinal dilation which was read as possible internal hernia. Her WBC is 21 today. It was not checked on her ER visit two weeks ago. She states that she was told as a child that she has a hernia at her umbilicus, but is unclear whether she has any history of internal hernia or other intestinal abnormality. She does report occasional abdominal cramps and morning nausea, as well as occasional difficulty swallowing. She says she has acid reflux when she brushes her teeth. She reports passing gas and stool daily. Denies bloating. She has a wound on the right side of her perineum which she says was much worse and is now very small and shallow by comparison. ROS: GENERAL: Denies chills, fatigue, malaise, fever, sweats. HEENT: Denies sinus pain, ear pain, sore throat, difficulty swallowing, dizziness. c/o lumps in her neck and upper back RESPIRATORY: Denies dyspnea, cough, wheezing, hemoptysis, sputum. CARDIOVASCULAR: Denies chest pain, palpitations, orthopnea, edema, GASTROINTESTINAL: As per HPI : Denies dysuria, frequency, incontinence, hematuria, urinary retention. Complains possible parasites, complaints of perineum pain MUSCULOSKELETAL: denies weakness, joint pain, or bony pain SKIN: Denies rash, skin lesions NEUROLOGIC: Denies weakness, headache, numbness, change in speech, confusion, seizures, incoordination. PSYCHIATRIC: No concerning psychosocial issues. PE: GENERAL: Well groomed and cooperative. Appears stated age. Answers questions promptly and appropriately. Vital signs noted. HENT: Normocephalic, atraumatic. Hearing intact. Oral mucosa is pink and moist. Tiny palpable lymph nodes along the posterior neck. EYES: Conjunctiva pink, sclera white, no periorbital swelling. CARDIOVASCULAR: Regular rate. No pedal edema. RESPIRATORY: Non-tachypneic, breathing comfortably on room air. GASTROINTESTINAL: Abdomen soft and non-distended; non tender GENITALURINARY: No flank tenderness. Normal female genitalia with 2cm x 1cm shallow ulcer to the right of the right labia in the skin crease lateral to the vulva; there is minimal surrounding skin erythema, no active drainage, no parasites or worms seen; moderately tender to palpation MUSCULOSKELETAL: Equal tone and mass bilaterally. SKIN: Warm, dry, soft, appropriate color for ethnicity. No other lesions, rashes, or wounds. NEURO: Alert and Oriented X 3. No gross sensory deficits, or cognitive issues. PSYCH: Appropriate mood and affect, normal intellect Meds Home Medications and Allergies Home Medications Medication Instructions Recorded Confirmed Type albendazole 400 mg PO DAILY #2 tab 06/10/20 Rx doxycycline monohydrate 100 mg PO BID #20 tab 06/22/20 Rx hydrocodone-acetaminophen 1 tab PO Q6H PRN #10 tab 06/22/20 Rx ondansetron 4 mg PO Q8H PRN #10 tab 06/22/20 Rx Allergies Allergy/AdvReac Type Severity Reaction Status Date / Time amoxicillin Allergy Verified 06/10/20 21:58 Exam Vital Signs (past 8 hours): - 06/21/20 23:14 06/21/20 23:49 06/22/20 00:00 Temperature 97.8 F Pulse Rate 111 H 112 H 104 H Respiratory Rate 18 Blood Pressure 147/81 H Pulse Oximetry 100 100 100 06/22/20 00:30 06/22/20 01:00 06/22/20 01:30 Temperature Pulse Rate 106 H 86 97 H Respiratory Rate Blood Pressure Pulse Oximetry 99 99 100 06/22/20 02:00 06/22/20 02:25 06/22/20 02:37 Temperature Pulse Rate 103 H 74 81 Respiratory Rate Blood Pressure 157/67 H Pulse Oximetry 99 99 100 06/22/20 03:00 06/22/20 03:21 06/22/20 03:30 Temperature Pulse Rate 105 H 90 69 Respiratory Rate Blood Pressure 128/74 127/71 Pulse Oximetry 98 99 100 06/22/20 04:00 Temperature Pulse Rate 94 H Respiratory Rate Blood Pressure Pulse Oximetry 100 Oxygen Delivery Method Room Air Objective Imaging CT scan - abdomen: My impression: mildly dilated loops of bowel with no specific pattern; inflammatory change in the wall of the perineum at the site of the ulcer without any visible abscess Radiologist's impression: dilated small bowel; possible internal hernia Labs Result Diagrams: 06/22/20 01:22 06/22/20 01:22 Labs: Laboratory Results - last 24 hr 06/22/20 06/22/20 06/22/20 01:08 01:08 01:08 WBC RBC Hgb Hct MCV MCH MCHC RDW Plt Count Neut % (Auto) Lymph % (Auto) [place] % (Auto) Eos % (Auto) Baso % (Auto) Neut # (Auto) Lymph # (Auto) [place] # (Auto) Eos # (Auto) Baso # (Auto) Sodium Potassium Chloride Carbon Dioxide BUN Creatinine Estimated GFR BUN/Creatinine Ratio Glucose Lactate Calcium Total Bilirubin AST ALT Alkaline Phosphatase Total Protein Albumin Globulin Albumin/Globulin Ratio Procalcitonin Serum , Qual Urine Color Yellow Urine Appearance Clear Urine pH 8.5 H Ur Specific [place] 1.015 Urine Protein 1+ H Urine Glucose (UA) Negative Urine Ketones Trace H Urine Occult Blood 3+ H Urine Nitrate Negative Urine Bilirubin Negative Urine Urobilinogen 0.2 Ur Leukocyte Esterase Negative Urine RBC 1-5/hpf Urine WBC 0-1/hpf Ur Squamous Epith Cells 1-5 /hpf Urine Bacteria Moderate (10-30) H Hyaline Casts 0-1/lpf Urine Mucus 2+ H Ur Culture Indicated? Cult not indicated U Opiates 300ng/mL cut Negative Ur Oxycodone Screen Negative Urine Methadone Screen Negative Ur Barbiturates Screen Negative U Tricyclic Antidepress Positive H Ur Phencyclidine Scrn Negative Ur Amphetamines Screen Positive H U Methamphetamines Scrn Negative Ur MDMA Scrn (Ecstasy) Negative U Benzodiazepines Scrn Negative Urine Cocaine Screen Negative U Marijuana (THC) Screen Positive H Ur Chlamydia DNA (PCR) Not detected N gonorrhoeae DNA (PCR) Not detected 06/22/20 06/22/20 06/22/20 01:22 01:22 01:22 WBC 21.1 H RBC 4.46 Hgb 13.8 Hct 41.6 MCV 93.2 MCH 31.0 MCHC 33.2 RDW 13.0 Plt Count 272 Neut % (Auto) 86.7 H Lymph % (Auto) 8.5 L [place] % (Auto) 4.3 Eos % (Auto) 0.2 L Baso % (Auto) 0.3 Neut # (Auto) 62359 H Lymph # (Auto) 1800 [place] # (Auto) 900 Eos # (Auto) 0 Baso # (Auto) 100 Sodium 142 Potassium 3.6 Chloride 105 Carbon Dioxide 27 BUN 10 Creatinine 0.80 Estimated GFR > 60.0 BUN/Creatinine Ratio 12.5 Glucose 113 H Lactate Calcium 9.7 Total Bilirubin 0.3 AST 26 ALT 14 Alkaline Phosphatase 80 Total Protein 8.0 Albumin 4.5 Globulin 3.5 Albumin/Globulin Ratio 1.3 Procalcitonin Serum , Qual Negative Urine Color Urine Appearance Urine pH Ur Specific [place] Urine Protein Urine Glucose (UA) Urine Ketones Urine Occult Blood Urine Nitrate Urine Bilirubin Urine Urobilinogen Ur Leukocyte Esterase Urine RBC Urine WBC Ur Squamous Epith Cells Urine Bacteria Hyaline Casts Urine Mucus Ur Culture Indicated? U Opiates 300ng/mL cut Ur Oxycodone Screen Urine Methadone Screen Ur Barbiturates Screen U Tricyclic Antidepress Ur Phencyclidine Scrn Ur Amphetamines Screen U Methamphetamines Scrn Ur MDMA Scrn (Ecstasy) U Benzodiazepines Scrn Urine Cocaine Screen U Marijuana (THC) Screen Ur Chlamydia DNA (PCR) N gonorrhoeae DNA (PCR) 06/22/20 06/22/20 01:22 01:22 WBC RBC Hgb Hct MCV MCH MCHC RDW Plt Count Neut % (Auto) Lymph % (Auto) [place] % (Auto) Eos % (Auto) Baso % (Auto) Neut # (Auto) Lymph # (Auto) [place] # (Auto) Eos # (Auto) Baso # (Auto) Sodium Potassium Chloride Carbon Dioxide BUN Creatinine Estimated GFR BUN/Creatinine Ratio Glucose Lactate 1.0 Calcium Total Bilirubin AST ALT Alkaline Phosphatase Total Protein Albumin Globulin Albumin/Globulin Ratio Procalcitonin 0.22 Serum , Qual Urine Color Urine Appearance Urine pH Ur Specific [place] Urine Protein Urine Glucose (UA) Urine Ketones Urine Occult Blood Urine Nitrate Urine Bilirubin Urine Urobilinogen Ur Leukocyte Esterase Urine RBC Urine WBC Ur Squamous Epith Cells Urine Bacteria Hyaline Casts Urine Mucus Ur Culture Indicated? U Opiates 300ng/mL cut Ur Oxycodone Screen Urine Methadone Screen Ur Barbiturates Screen U Tricyclic Antidepress Ur Phencyclidine Scrn Ur Amphetamines Screen U Methamphetamines Scrn Ur MDMA Scrn (Ecstasy) U Benzodiazepines Scrn Urine Cocaine Screen U Marijuana (THC) Screen Ur Chlamydia DNA (PCR) N gonorrhoeae DNA (PCR) Assessment & Plan Assessment and plan (1) Ulcer of perineum: Status: Acute (2) Abnormal CT scan: Status: Acute (3) Symptoms of gastroesophageal reflux: Status: Acute (4) Fear of parasites: Status: Acute (5) Parasites in stool: Status: Inactive Assessment & Plan narrative: This is a 30 yo woman with multiple complaints. She was treated with Albednazole and Cipro two weeks ago for a possible parasite infection of the stool. She now presents with a WBC of 21 and a perineal ulcer. She has an incidental finding on her CT scan of dilated small bowel which was read as possible internal hernia. On deeper discussion with the patient she has never been told of an internal hernia. She was told something about an umbilical hernia as a child. She has a constellation of low grade GI complaints which may not amount to much but should be evaluated as an outpatient. I do not think that she needs to be admitted to the hospital at this point. She is not toxic. She is not clinically obstructed. She has no peritoneal signs. She is tolerating PO. She has, per her, an improving lesion in the groin. She has a WBC of 21, which may be secondary to the perineal ulcer. I would agree with sending her home on PO Doxycycline, with close follow up. I have offered to see her in clinic next Wednesday or . We have given her strict return precautions to come back to the ER if she develops fevers, PO intolerance, obstipation, spreading redness, worsening tenderness, drainage, or other concerning symptoms. She verbalized understanding and agreement with this plan. COVID-19 COVID-19 status: Not tested Time Spent With Patient Time with patient: 25 - 35 minutes
== END 2020-06-22 04:49 | disposition home or self-care (01) ==
PROVIDERS: Emergency Provider Emergency Medicine; PCP Family Medicine
DX: L02.91 Cutaneous abscess, unspecified (principal); R10.2 Pelvic and perineal pain; B82.9 Intestinal parasitism, unspecified
CPT/HCPCS: 36415; 74177; 80053; 80305; 81001; 81003; 83605; 84145; 84703; 85025; 87040; 87210; 87491; 87591; 96365; 96375; 99284; J2270; J2405; Q9967

== ENCOUNTER 2020-07-09 03:36 | Emergency (ER) | payer OTHER, MEDICAID, SELFPAY ==
[2020-07-09 03:40] VITALS: BP 146/107; PULSE 101; RESP 20; TEMP 37; O2SAT 100; BMI 19.7
--- NOTE | 2020-07-09 03:54 | ED_ITS ---
HPI - Recheck/Abnormal Lab/Rx General Chief Complaint: Skin/Abscess/Foreign Body Stated Complaint: pain in groin area abscess Time Seen by Provider: 07/09/20 03:39 Source: patient Mode of arrival: Ambulatory Limitations: no limitations History of Present Illness HPI narrative: 30F smoker with history of ADHD presents with multiple complaints. She has had some occasionally productive cough, but isn't feeling short of breath. She states she is coughing so much her back hurts. She denies fever or chills. She denies hemoptysis. She was seen here a few weeks ago and had a draining abscess with surrounding cellulitis of her right groin/perineum. She had a CT which was unremarkable and was seen by surgery at the bedside. Eventually she was discharged and followed up with surgery shortly thereafter and had been on Doxycycline. She admits that the lesion is healing pretty well but she has ongoing pain that seems to be worse with she has a BM. She has been constipated and has been taking hydrocodone but has none left. She has not Related Data Home Medications Medication Instructions Recorded Confirmed alprazolam 0.5 mg tablet 0.5 mg PO BEDTIME PRN 06/25/20 06/25/20 duloxetine 20 mg capsule,delayed 20 mg PO BID 06/25/20 06/25/20 release multivitamin 1 cap PO DAILY 06/25/20 06/25/20 omega-3 fatty acids 1,000 mg 1,000 mg PO DAILY 06/25/20 06/25/20 capsule Previous Rx's Medication Instructions Recorded albendazole 400 mg PO DAILY #2 tab 06/10/20 doxycycline monohydrate 100 mg PO BID #20 tab 06/22/20 hydrocodone-acetaminophen 1 tab PO Q6H PRN #10 tab 06/22/20 ondansetron 4 mg PO Q8H PRN #10 tab 06/22/20 ketorolac 10 mg PO Q6H PRN #14 tab 07/09/20 Allergies Allergy/AdvReac Type Severity Reaction Status Date / Time amoxicillin Allergy Verified 06/25/20 15:25 Review of Systems Constitutional Constitutional: Denies chills, Denies fatigue, Denies fever(s), Denies frequent falls, Denies lethargy and Denies weakness Eyes Eyes: Denies change in vision, Denies eye discharge, Denies irritation and Denies loss of vision ENT Ears, Nose, Mouth, and Throat: Denies change in voice, Denies dizziness, Denies neck pain, Denies sore throat and Denies throat swelling Cardiovascular Cardiovascular: Denies chest pain, Denies irregular heart rhythm, Denies lightheadedness, Denies palpitations, Denies dyspnea, Denies dyspnea on exertion and Denies orthopnea Respiratory Respiratory: Reports cough, Denies dyspnea, Denies dyspnea on exertion and Denies wheezing Gastrointestinal Gastrointestinal: Denies abdominal pain, Denies change in bowel habits, Reports constipation, Reports cramping, Denies diarrhea, Denies nausea and Denies vomiting Musculoskeletal Musculoskeletal: Denies neck pain and Denies numbness Integumentary/Breasts Skin/Breast: Denies pruritus, Denies erythema, Denies rash, Reports skin ulcer (vs. abscess, healing in R groin) and Denies wounds Neurologic Neurologic: Denies behavioral changes, Denies confusion, Denies dizziness, Denies frequent falls, Denies loss of vision, Denies numbness and Denies weakness Psychiatric Psychiatric: Denies anxiety, Denies behavioral changes, Denies confusion, Denies depression, Denies homicidal ideation and Denies suicidal ideation Endocrine Endocrine: Denies fatigue, Denies flushing and Denies palpitations Hematologic/Lymphatic Hematologic/Lymphatic: Denies easy bruising Allergic/Immunologic Allergic/Immunologic: Denies urticaria, Denies throat swelling and Denies wheezing Patient History Medical History Anemia (Acute) History of hysteroscopy (Acute) Hypothyroid (Acute) Parasites in stool (Inactive) Surgical History Hx of dilation and curettage (Acute) Family History Grandmother Hypertension COPD (chronic obstructive pulmonary disease) Grandfather Heart disease Social History household members: significant other occupational status: unemployed Smoking Status: Current every day smoker alcohol intake: never Smoking Status: Current every day smoker tobacco type: vaping alcohol intake frequency: 0-2 drinks per day Substance Use Type: does not use Exam Narrative Exam Narrative: GENERAL: [30] year old patient appears stated age. Thin, mild distress HEAD: Atraumatic. Normocephalic. EYES: Pupils equal round and reactive. Extraocular motions intact. No scleral icterus. No injection or drainage. ENT: Nose without bleeding, purulent drainage. Throat without erythema, tonsillar hypertrophy or exudate. Airway patent. NECK: Trachea midline. Non tender CARDIOVASCULAR: Regular rate and rhythm without murmurs, gallops, or rubs. RESPIRATORY: Clear to auscultation. Breath sounds equal bilaterally. No wheezes, rales, or rhonchi. GASTROINTESTINAL: Abdomen soft, non-tender, nondistended. : Perineum examined with patient permission and female nursing flight engineer instructor at the bedside. Lesion is healing appropriately, no erythema, no drainage, no induration or fluctuance. EXTREMITIES: No edema or joint tenderness. BACK: Nontender without deformity or crepitance. No flank tenderness. NEURO: AOx3. SKIN: No rash or erythema of visible areas Initial Vital Signs Initial Vital Signs: Vital Signs Temperature 98.6 F 07/09/20 03:40 Pulse Rate 101 H 07/09/20 03:40 Respiratory Rate 20 07/09/20 03:40 Blood Pressure 146/107 H 07/09/20 03:40 Pulse Oximetry 100 07/09/20 03:40 Course Orders Ordered: ED Orders 07/09/20 04:00 XR chest 2V Stat 07/09/20 04:11 COVID19 -ED/INPAT/OR/L&D Stat Discontinued Medications Ketorolac Tromethamine (Toradol) 60 mg IM NOW ONE Stop: 07/09/20 05:03 Vital Signs Vital signs: Vital Signs - 8 hr 07/09/20 03:40 07/09/20 05:10 Temperature 98.6 F Pulse Rate 101 H 101 H Respiratory Rate 20 20 Blood Pressure 146/107 H 141/70 H Pulse Oximetry 100 99 MDM - Recheck/Abnormal Lab/Rx Lab Data Labs: Lab Results 07/09/20 Range/Units 04:11 COVID-19 PCR Negative (Negative) Urine Dip Bedside Urine Glucose Negative Bedside Urine Bilirubin - Negative Bedside Urine Ketone - Negative Urine Specific [place] 1.010 Bedside Urine Occult Blood - Negative Bedside Urine pH 6.0 Bedside Urine Protein - Negative Bedside Urine Urobilinogen - Negative Bedside Urine Nitrite - Negative Bedside Urine Leukocytes - Negative Esterase Discharge Plan Departure Patient Disposition: Home Clinical Impression: Acute upper respiratory infection, Abscess of groin, right Discharge Date/Time: 07/09/20 05:12 Activity Restrictions/Additional Instructions: *You have been diagnosed with [ healing ulcer/abscess in groin, cough ] *Your groin skin lesion appears to be healing appropriately *Your chest xray shows no obvious sign of pneumonia *Your COVID swab was negative *Take over the counter medications as directed: 1. Metamucil - is a bulk forming laxative and adds fiber 2. Colace - softens your stool 3. Dulcolax suppository - stimulates your bowels Drink plenty of water and eat foods high in fiber *Stay as active as you can as this helps move your bowels as well *Continue to take medications as directed *Follow up with your primary care provider on Wednesday as planned. Let them know you were seen in the Emergency Department and that we ask that you be seen in follow up *Return to ER if you should have any new, worsening or concerning symptoms Prescriptions: New ketorolac 10 mg tablet 10 mg PO Q6H PRN (Reason: pain) Qty: 14 RF: 0 No Action omega-3 fatty acids [Fish Oil Concentrate] 1,000 mg capsule 1,000 mg PO DAILY RF: 0 multivitamin Capsule 1 cap PO DAILY RF: 0 duloxetine 20 mg capsule,delayed release(DR/EC) 20 mg PO BID RF: 0 alprazolam 0.5 mg tablet 0.5 mg PO BEDTIME PRNRF: 0 albendazole 200 mg tablet 400 mg PO DAILY Qty: 2 RF: 0 doxycycline monohydrate 100 mg tablet 100 mg PO BID Qty: 20 RF: 0 hydrocodone-acetaminophen 5-325 mg tablet 1 tab PO Q6H PRN (Reason: pain) Qty: 10 RF: 0 ondansetron 4 mg tablet,disintegrating 4 mg PO Q8H PRN (Reason: nausea and vomiting) Qty: 10 RF: 0 Referrals: Sergio García MD [Primary Care Provider] -
--- NOTE | 2020-07-09 04:00 | DI.RAD.S_ITS ---
PROCEDURE: XR CHEST 2V INDICATIONS: cough with pain TECHNIQUE: 2 views of the chest were acquired. COMPARISON: None. FINDINGS: Surgical changes and devices: None. Lungs and pleura: Lungs are clear. No pleural effusions or pneumothorax. Mediastinum: Mediastinal contours are normal. Heart size is normal. Bones and chest wall: No suspicious bony abnormalities. Soft tissues appear unremarkable. IMPRESSION: No acute cardiopulmonary disease process. Dictated by: Jayleen Molina MD, PhD on 07/09/2020 at 9:16 Approved by: Jayleen Molina MD, PhD on 07/09/2020 at 9:17
[2020-07-09 04:31] LABS: COVID19 -Nasal RAPID Negative (Negative)
[2020-07-09 05:10] VITALS: BP 141/70; PULSE 101; RESP 20; O2SAT 99
== END 2020-07-09 05:12 | disposition home or self-care (01) ==
PROVIDERS: Emergency Provider Emergency Medicine; PCP Family Medicine
DX: J06.9 Acute upper respiratory infection, unspecified (principal); L02.214 Cutaneous abscess of groin
CPT/HCPCS: 71046; 81003; 87635; 99283

== ENCOUNTER 2020-07-13 10:24 | Emergency (ER) | payer OTHER, MEDICAID, SELFPAY ==
[2020-07-13 11:00] VITALS: BP 158/71; PULSE 76; RESP 12; TEMP 37; O2SAT 99; BMI 19.7
--- NOTE | 2020-07-13 11:05 | PC.NURSE ---
Patient came into the ED with complaints of worms coming out of her skin. She has multiple superficial skin wounds from picking at worms that she sees. She stated that they are crawling out of her skin. She picked at her arm and wanted to show me a worm. When examined more closely it appeared that she was picking skin off the top of her arm. She denies drug use or alcohol use.
--- NOTE | 2020-07-13 11:24 | ED_ITS ---
HPI - Skin/Abscess/Foreign Bdy <CANDACE Nguyen - Last Filed: 07/13/20 11:49> General Chief complaint: Skin/Abscess/Foreign Body Stated complaint: feels parasitic infection spreading, abscess Time Seen by Provider: 07/13/20 11:04 Source: patient Mode of arrival: Ambulatory Limitations: no limitations History of Present Illness HPI narrative: This is a 30-year-old female, smoker, who has history of ADHD, depression, anxiety presents to ED with chief complain of parasites are coming out of her skin and perineum area and which she states pulled out a worm. Patient reports she was seen at [facility] yesterday with same chief complaints. She was treated with albendazole about a month ago for parasite infection and had recently completed long course of doxycycline for skin infection. Patient had blood test drawn on Wednesday by her primary care physician, Dr. García, with chief complain of generally not feeling well, decreased appetite and weight loss, constipation, and body aches. Patient is concerned that she may have a parasite lung infection as well. Patient reports she has anxiety and frequently picks under skin. She denies fever, chills, nausea or vomiting. She was evaluated in emergency room a few times with similar chief complaints. Related Data Home Medications Medication Instructions Recorded Confirmed alprazolam 0.5 mg tablet 0.5 mg PO BEDTIME PRN 06/25/20 06/25/20 duloxetine 20 mg capsule,delayed 20 mg PO BID 06/25/20 06/25/20 release multivitamin 1 cap PO DAILY 06/25/20 06/25/20 omega-3 fatty acids 1,000 mg 1,000 mg PO DAILY 06/25/20 06/25/20 capsule Previous Rx's Medication Instructions Recorded albendazole 400 mg PO DAILY #2 tab 06/10/20 doxycycline monohydrate 100 mg PO BID #20 tab 06/22/20 hydrocodone-acetaminophen 1 tab PO Q6H PRN #10 tab 06/22/20 ondansetron 4 mg PO Q8H PRN #10 tab 06/22/20 ketorolac 10 mg PO Q6H PRN #14 tab 07/09/20 Allergies Allergy/AdvReac Type Severity Reaction Status Date / Time amoxicillin Allergy Verified 06/25/20 15:25 Review of Systems <CANDACE Nguyen - Last Filed: 07/13/20 11:49> Review of Systems Narrative: General: See HPI HEENT: Denies sinus pain, ear pain, sore throat, difficulty swallowing, dizziness. Respiratory: Denies dyspnea, cough, wheezing, hemoptysis, sputum. Cardiovascular: Denies chest pain, palpitations, orthopnea, edema. Gastrointestinal: Denies nausea, vomiting, abdominal pain, diarrhea, constipation, melena. : Denies dysuria, frequency, incontinence, hematuria, urinary retention. Musculoskeletal: See HPI Skin: See HPI Neurologic: Denies weakness, headache, numbness, change in speech, confusion, seizures, incoordination. Psychiatric: Reports history of depression and anxiety. Patient denies hallucination or suicidal ideations. 12-point review of systems is negative except for those stated above. Patient History <CANDACE Nguyen - Last Filed: 07/13/20 11:49> Medical History Anemia (Acute) History of hysteroscopy (Acute) Hypothyroid (Acute) Parasites in stool (Inactive) Surgical History Hx of dilation and curettage (Acute) Family History Grandmother Hypertension COPD (chronic obstructive pulmonary disease) Grandfather Heart disease Social History household members: significant other occupational status: unemployed Smoking Status: Current every day smoker alcohol intake: never Smoking Status: Current every day smoker tobacco type: vaping alcohol intake frequency: 0-2 drinks per day Substance Use Type: marijuana Exam <CANDACE Nguyen - Last Filed: 07/13/20 11:49> Narrative Exam Narrative: General appearance: well developed, thin appearing, in no acute distress but appears to be anxious frequently picking on her skins. Head: normocephalic, atraumatic, no scalp lesions, non-tender. ENT: Hearing grossly intact. Nose without bleeding, purulent discharge, septal hematoma or deviation. Airway patent. Neck/Thyroid: neck supple, full range of motion, no visible masses or meningeal signs. No JVD, non-tender without lymphadenopathy. Skin: HERO Kramer chaperoned for skin exam. Several excoriated lesions in right side abdomen, right inner calf, left inner thigh without signs of cellulitis. Patient has dried discoloration round patch on mid chest. Warm and dry and appropriate color for ethnicity. Heart: no clubbing, no cyanosis, no edema. Lungs: Breathing even and unlabored. No stridor. No accessory muscles used. Able to speak in full sentences. Chest: normal shape and expansion. Abdomen: non-obese, non-distended. Neurologic: alert and oriented. 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 Psych: good eye contact, normal affect. Initial Vital Signs Initial Vital Signs: Vital Signs Temperature 98.6 F 07/13/20 11:00 Pulse Rate 76 07/13/20 11:00 Respiratory Rate 12 07/13/20 11:00 Blood Pressure 158/71 H 07/13/20 11:00 Pulse Oximetry 99 07/13/20 11:00 <Vinny Ryan DO - Last Filed: 07/13/20 12:25> Initial Vital Signs Initial Vital Signs: Vital Signs Temperature 98.6 F 07/13/20 11:00 Pulse Rate 76 07/13/20 11:00 Respiratory Rate 12 07/13/20 11:00 Blood Pressure 158/71 H 07/13/20 11:00 Pulse Oximetry 99 07/13/20 11:00 Scores <CANDACE Nguyen - Last Filed: 07/13/20 11:49> GCS [place] coma scale eye opening: Spontaneous [place] coma scale verbal response: Orientated [place] coma scale motor response: Obey commands [place] coma scale total score: 15 Course <CANDACE Nguyen - Last Filed: 07/13/20 11:49> Vital Signs Vital signs: Vital Signs - 8 hr 07/13/20 11:00 Temperature 98.6 F Pulse Rate 76 Respiratory Rate 12 Blood Pressure 158/71 H Pulse Oximetry 99 <Vinny Ryan DO - Last Filed: 07/13/20 12:25> Vital Signs Vital signs: Vital Signs - 8 hr 07/13/20 11:00 Temperature 98.6 F Pulse Rate 76 Respiratory Rate 12 Blood Pressure 158/71 H Pulse Oximetry 99 MDM - Skin/Abscess/Foreign Bdy <Bulmaro CANDACE Smith - Last Filed: 07/13/20 11:49> Differential Diagnosis Differential diagnosis: Likely abscess of skin or subcutaneous tissue, cellulitis and insect bites Medical Records Attestation: I reviewed the patient's medical records. [facility] Narrative Medical decision making narrative: This is a 30-year-old female presents to ED reporting parasites infection and seeing parasites coming out of her skin and requesting medication treatment. Patient reports she was also evaluated at [facility] Emergency room last night with seen chief complain. 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 She also was evaluated 4 days ago with Covid tests and chest x-ray which were negative. Exam was unremarkable except several excoriated lesions in her body without parasite visualized or signs of cellulitis or abscess at this time.. Patient frequently picks up her skin during exam. Patient offered antibiotic ointment and to avoid picking on her scans to prevent infection from this. Patient is requesting more testing and imaging tests and patient informed she recently had imaging tests and blood test that has been drawn. Patient advised repeating a bent does all treatment at this time since I do not see parasites. She already completed a course of albendazole last month and repeating or prolonged treatment with albendazole could take a toll on her liver. She also uses Hern[place] as needed at home that has been prescribed by primary care physician and like to offered Tylenol and Motrin at this time. Patient declined these treatment plans and states will follow up with her primary care physician and left without discharge instruction stating she is upset. Discharge Plan Departure Patient Disposition: Home Clinical Impression: Skin lesion Discharge Date/Time: 07/13/20 11:30 Instructions: Skin Wound Prescriptions: No Action omega-3 fatty acids [Fish Oil Concentrate] 1,000 mg capsule 1,000 mg PO DAILY RF: 0 multivitamin Capsule 1 cap PO DAILY RF: 0 duloxetine 20 mg capsule,delayed release(DR/EC) 20 mg PO BID RF: 0 alprazolam 0.5 mg tablet 0.5 mg PO BEDTIME PRNRF: 0 albendazole 200 mg tablet 400 mg PO DAILY Qty: 2 RF: 0 doxycycline monohydrate 100 mg tablet 100 mg PO BID Qty: 20 RF: 0 hydrocodone-acetaminophen 5-325 mg tablet 1 tab PO Q6H PRN (Reason: pain) Qty: 10 RF: 0 ondansetron 4 mg tablet,disintegrating 4 mg PO Q8H PRN (Reason: nausea and vomiting) Qty: 10 RF: 0 ketorolac 10 mg tablet 10 mg PO Q6H PRN (Reason: pain) Qty: 14 RF: 0 Referrals: Sergio García MD [Primary Care Provider] - <Vinny Ryan DO - Last Filed: 07/13/20 12:25> Cosign ED Attending Cosignature Attestation: I was immediately available in the department for consultation. This documentation has been reviewed and I agree with assessment and plan. Supervised by Vinny Ryan DO
== END 2020-07-13 11:30 | disposition home or self-care (01) ==
PROVIDERS: Emergency Provider Nurse Practitioner Family; PCP Family Medicine
DX: L98.9 Disorder of the skin and subcutaneous tissue, unspecified (principal)
CPT/HCPCS: 99281

== ENCOUNTER → 2023-08-10 17:23 | Outpatient (CLI) | payer OTHER, SELFPAY ==
[2023-08-10 18:20] LABS: HCG Quantitative /Beta subunit 1780.6 mIU/mL
== END ==
PROVIDERS: PCP Family Medicine; Referring Provider Student in an Organized Health Care Education/Training Program; Visit Provider Student in an Organized Health Care Education/Training Program
DX: N91.2 Amenorrhea, unspecified (principal)
CPT/HCPCS: 36415; 84702

== ENCOUNTER → 2023-08-12 17:18 | Outpatient (CLI) | payer OTHER, SELFPAY ==
[2023-08-12 19:11] LABS: Progesterone, Total 7.58 ng/mL
== END ==
PROVIDERS: PCP Family Medicine; Referring Provider Student in an Organized Health Care Education/Training Program; Visit Provider Student in an Organized Health Care Education/Training Program
DX: O26.20 Pregnancy care for patient with recurrent pregnancy loss, unspecified trimester (principal)
CPT/HCPCS: 36415; 84144; 84702

== ENCOUNTER → 2023-08-17 14:01 | Outpatient (CLI) | payer OTHER, SELFPAY ==
[2023-08-17 14:46] LABS: Add Manual Diff / Slide Review NO; Basophils Absolute Auto 100 /uL (0-100); Basophils Percent Auto 1.2 % (0-2); Eosinophils Absolute Auto 300 /uL (0-450); Eosinophils Percent Auto 2.4 % (2-4); Hematocrit 44.4 % (36-46); Lymphocytes Absolute Auto 3000 /uL (1100-4500); Lymphocytes Percent Auto 28.7 % (25-40); Mean Corpuscular HGB Conc 33.8 % (30-36); Mean Corpuscular Hemoglobin 31.5 PG (26-34); Mean Corpuscular Volume 93.1 fL (80-100); Monocytes Absolute Auto 600 /uL (0-900); Monocytes Percent Auto 5.6 % (3-14); Neutrophils Absolute Auto 6500 /uL (1500-7000); Neutrophils Percent Auto 62.1 % (50-75); Platelet Count 319 X10^3/uL (150-400); Red Blood Cell Count 4.77 X10^6/uL (4.0-5.2); Red Cell Distribution Width 13.1 % (11.6-14.8); White Blood Cell Count 10.5 X10^3/uL (4.5-11.0)
[2023-08-17 15:35] LABS: Free T4, Direct Thyroxine 1.07 ng/dL (0.78-2.19)
[2023-08-17 15:48] LABS: Thyroid Stimulating Hormone 1.58 uIU/mL (0.47-4.68)
[2023-08-17 16:04] LABS: Appearance Urine UA CLEAR; Bilirubin Urine UA NEGATIVE (NEGATIVE); Color Urine UA YELLOW; Glucose Urine UA NEGATIVE (Negative); Ketones Urine UA NEGATIVE (NEGATIVE); Leukocyte Esterase Urine UA NEGATIVE (NEGATIVE); Nitrite Urine UA NEGATIVE (Negative); Occult Blood Urine UA 1+ (Negative); Protein Urine UA NEGATIVE (Negative); Specific Gravity Urine UA 1.015 (1.000-1.035); Urobilinogen Urine UA 0.2 E.U./dL (0.2)
[2023-08-17 16:10] LABS: pH Urine UA 6.5 (4.5-8.0)
[2023-08-17 16:32] LABS: Bacteria Urine Few (2-10); Culture Indicated Urine Cult Not Indicated; RBC Urine 1-5/HPF (0-5/HPF); Squamous Epithelial Cell Urine 1-5 /HPF (0-5/HPF); WBC Urine None Seen (0-5/HPF)
[2023-08-18 07:23] LABS: RPR Screen Non Reactive (Non Reactive)
[2023-08-18 09:00] LABS: Varicella IgG Antibody 3450 index (Immune >165)
[2023-08-19 18:17] LABS: Hepatitis B Surface Antigen NEGATIVE s/c (NEGATIVE); Rubella Antibody IgG 54.6 IU/mL (>15)
[2023-08-19 18:39] LABS: HIV 1 & 2 Ab/Ag 4th Gen Combo NEGATIVE (NEGATIVE); Hep C Virus Ab w/Reflex Quant NEGATIVE s/c (NEGATIVE)
== END ==
PROVIDERS: PCP Family Medicine; Referring Provider Obstetrics & Gynecology; Visit Provider Obstetrics & Gynecology
DX: O26.20 Pregnancy care for patient with recurrent pregnancy loss, unspecified trimester (principal)
CPT/HCPCS: 36415; 80055; 81003; 81015; 84439; 84443; 86787; 86803; 86850; 86900; 86901; 87086; 87389

== ENCOUNTER → 2023-08-20 15:17 | Outpatient (CLI) | payer OTHER, SELFPAY ==
[2023-08-20 20:22] LABS: Urine N gonorrhoeae NOT DETECTED
[2023-08-20 20:43] LABS: Urine Chlamydia NOT DETECTED
== END ==
PROVIDERS: Referring Provider Student in an Organized Health Care Education/Training Program; Visit Provider Student in an Organized Health Care Education/Training Program
DX: Z34.81 Encounter for supervision of other normal pregnancy, first trimester (principal); O36.80X0 Pregnancy with inconclusive fetal viability, not applicable or unspecified; Z3A.01 Less than 8 weeks gestation of pregnancy
CPT/HCPCS: 36415; 84702; 87491; 87591

== ENCOUNTER → 2023-08-23 11:06 | Outpatient (CLI) | payer OTHER, SELFPAY | PROVIDERS: Referring Provider Student in an Organized Health Care Education/Training Program; Visit Provider Student in an Organized Health Care Education/Training Program | DX: O36.80X0 Pregnancy with inconclusive fetal viability, not applicable or unspecified (principal) | CPT/HCPCS: 36415; 84702 ==

== ENCOUNTER → 2023-08-27 12:01 | Outpatient (CLI) | payer OTHER, SELFPAY ==
[2023-08-27 12:57] LABS: HCG Quantitative /Beta subunit 2780.9 mIU/mL
[2023-08-27 13:25] LABS: Alanine Aminotransferase 14 IU/L (<35); Albumin 4.1 g/dL (3.5-5.0); Albumin Globulin Ratio 1.4 (1.0-2.8); Alkaline Phosphatase 66 U/L (38-126); Aspartate Aminotransferase 23 IU/L (14-36); BUN Creatinine Ratio 9.7 (6-22); Bilirubin Total 0.5 mg/dL (0.2-1.3); Blood Urea Nitrogen 7 mg/dL (7-17); Calcium 9.5 mg/dL (8.4-10.2); Carbon Dioxide 30 mmol/L (22-32); Chloride 101 mmol/L (98-107); Estimated Glomerular Filt Rate > 60 mL/min (>60); Globulin 2.9 g/dL (1.7-4.1); Glucose 104 mg/dL (70-100); HEMOLYSIS < 15 (0-50); Potassium 4.3 mmol/L (3.4-5.1); Sodium 135 mmol/L (137-145)
== END ==
PROVIDERS: Referring Provider Student in an Organized Health Care Education/Training Program; Visit Provider Student in an Organized Health Care Education/Training Program
DX: O00.90 Unspecified ectopic pregnancy without intrauterine pregnancy (principal)
CPT/HCPCS: 36415; 80053; 84702

== ENCOUNTER → 2023-08-30 13:12 | Outpatient (CLI) | payer OTHER, SELFPAY ==
[2023-08-30 13:55] LABS: HCG Quantitative /Beta subunit 1809.4 mIU/mL
== END ==
PROVIDERS: Student in an Organized Health Care Education/Training Program; PCP Nurse Practitioner Psychiatric/Mental Health; Referring Provider Nurse Practitioner Psychiatric/Mental Health; Visit Provider Nurse Practitioner Psychiatric/Mental Health
DX: O00.90 Unspecified ectopic pregnancy without intrauterine pregnancy (principal)
CPT/HCPCS: 36415; 84702